=== PATIENT | male | born 1965 | race Caucasian/White ===

== ENCOUNTER 2025-01-24 07:54 | Emergency (ER) | payer BC, SELFPAY ==
[2025-01-24 08:00] VITALS: BP 165/85
[2025-01-24 08:24] VITALS: BMI 33.3
--- NOTE | 2025-01-24 08:24 | ED.GENMED ---
History of Present Illness
General
Chief Complaint: Chest Problem
Source: patient
Time Seen by Provider: 01/24/25 08:12
History of Present Illness
History of Present Illness:
59-year-old male presents to the emergency room for evaluation because he had an episode while flying of feeling severe headache, neck pain, sweaty and had a low pulse ox. Patient states he has a history of necrotizing pancreatitis. He is required
intermittent pancreatic stents in its aftermath. He also has type 1 diabetes and its aftermath. Patient has chronic pain as well. While flying to this area for a the above symptoms began. He initially checked his blood sugar thinking
might be hypoglycemic which he was not his blood sugar was normal. He then used his portable pulse oximeter to check his pulse ox reading. It was reading in the mid 70s. The patient notes he was not feeling particularly short of breath at that
time. However given his complex medical history he was concerned. These events occurred 3 days ago. Since being here in the [facility] he has been feeling at his baseline. He is doing all normal activities. He is scheduled to fly home
tomorrow and has become nervous about his flight home. Currently the patient denies any shortness of breath. He does sometimes have pain when he takes a deep breath in the right lower thorax. This is not severe. This has occurred previously. No
dyspnea with exertion. No chest pain with exertion. No fever or chills or cough.
Phy Exam
Physical Exam
Physical Exam:
General: Awake, Alert, Oriented X3. No acute distress.
Vitals: unremarkable
Head: Atraumatic
Eyes: Pupils equal, EOMI
Throat: Airway intact, no exudates
Neck: Trachea midline
Lungs: Clear and equal b/l
Heart: Regular rate, no murmurs
Abd: Soft, Nontender, No pulsatile mass
Neuro: Nonfocal
Skin: Warm, dry, no rash
Extremities: pulses equal b/l, chronic swelling left lower leg which is unchanged from baseline per patient per patient
Course
Orders/Labs/Results
Orders:
Orders
01/24/25 08:24
Electrocardiogram (*1) Urgent
Reason for Study: Shortness of Breath
EKG- Treatment ONCE
01/24/25 08:37
Basic Metabolic Panel Urgent
Complete Blood Count/With Diff Urgent
D-Dimer Urgent
Troponin I Urgent
01/24/25 09:07
CR Chest - 2 Views Urgent
Comment:
Reason For Exam: sob
Abnormal Lab Results
01/24/25
08:37
WBC 2.9 L 10^3/uL
(4.8-10.8)
Absolute Lymphs (auto) 1.1 L 10^3/uL
(1.2-3.4)
Monocytes % 10.3 H %
(1.7-9.3)
Glucose 123 H mg/dl
(70-99)
01/24/25 08:37
01/24/25 08:37
Vital Signs
Initial and Last Documented VS:
Initial Vital Signs
Temp Pulse Resp BP Pulse Ox
97.8 F 93 16 165/85 96
01/24/25 08:00 01/24/25 08:00 01/24/25 08:00 01/24/25 08:00 01/24/25 08:00
Last Documented Vital Signs
Temp Pulse Resp BP Pulse Ox
97.8 F 72 16 140/87 93
01/24/25 08:00 01/24/25 09:00 01/24/25 09:00 01/24/25 09:00 01/24/25 09:00
MDM/Problems Addressed
Differential Diagnosis Includes:
PE, pleural effusion, anemia
MDM/Problems Addressed:
Labs are unremarkable. D-dimer is normal. He has a normal hemoglobin. Chest x-ray shows an elevated right hemidiaphragm which the patient was aware of. There is no evidence for a serious pathology or reason for hypoxia. Perhaps the persistent
elevation of the right hemidiaphragm affects his oxygenation when he flies. However I am not seeing any objective evidence to suggest it is unsafe for him to fly. No indication for hospitalization.
*Radiology
Radiology exam reviewed: preliminary read by ED provider (No acute abnormalities, elevation of the right hemidiaphragm)
*Pulse Oximetry
SaO2: 96
Oxygen Mode of Delivery: Room air
Patient hypoxic: no
*Critical Care Note
Total Time (30-74mins, 75-104mins- exclusive of procedures): Not Applicable
ED Attending Note
-
Portions of this chart may have been created with voice recognition software.� Occasional wrong word or��sound alike� substitutions may have occurred due to the inherent limitations of voice recognition software.
Discharge Plan
Departure
Patient Disposition: Home (Routine Discharge)
Date of Disposition: 01/24/25
Time of Disposition: 09:46
Patient with high blood pressure during this ER visit?: Yes
Condition: Good
Discharge Problem:
Shortness of breath
Instructions: Shortness of breath in adults - ED (DC), BLOOD PRESSURE
Referrals:
UNKNOWN - PT DOES,NOT KNOW [Family Provider]
Interventions
Interventions:
*Risk Screen - Suicide Last Done: 01/24/25 08:05
*General Assessment Last Done: 01/24/25 08:00
*Neglect/Abuse Screening Last Done: 01/24/25 08:05
*ED- Fall Risk Assessment Last Done: 01/24/25 08:27
*ED COVID-19 Vaccine History Last Done: 01/24/25 08:27
*ED Influenza Vaccine History Last Done: 01/24/25 08:27
*Nursing Disposition Last Done: 01/24/25 09:49
ED- Cardiac Assessment Last Done: 01/24/25 08:43
ED- Pulmonary Assessment Last Done: 01/24/25 08:30
Discharge Date and Time
Discharge Date/Time: 01/24/25 09:50
Print Language: ESTONIAN
[2025-01-24 08:27] VITALS: BP 148/97
[2025-01-24 08:47] LABS: Hematocrit 41.9 % (39.0-52.0); Hemoglobin 14.3 g/dL (13.0-18.0); Mean Corp Hgb Conc. 34.1 g/dL (33.0-37.0); Mean Corpuscular Volume 84.8 fL (80.0-94.0); Nucleated Red Blood Cells % 0 % (-); Platelet Count 163 10^3/uL (130-400); Red Cell Dist. Width 13.2 % (11.5-14.5)
[2025-01-24 08:59] LABS: D-Dimer 0.33 ug/mlFEU (0.00-0.50)
[2025-01-24 09:00] VITALS: BP 140/87
[2025-01-24 09:04] LABS: Blood Urea Nitrogen 16 mg/dl (9-20); Calcium 9.3 mg/dl (8.4-10.2); Carbon Dioxide 28 mmol/L (22-30); Chloride 104 mmol/L (98-107); Estimated Creatinine Clearance 97 ml/min; Glucose 123 mg/dl (70-99); Potassium 4.4 mmol/L (3.5-5.1); Sodium 138 mmol/L (135-145); eGFR > 60.00
[2025-01-24 09:16] LABS: Troponin I 0.017 ng/ml
== END 2025-01-24 09:50 | disposition home or self-care (01) ==
LOC: EMR 07:54
PROVIDERS: EMERGENCY PHYSICIAN Emergency Medicine
DX: R06.02 Shortness of breath (principal); R51.9 Headache, unspecified; M54.2 Cervicalgia; E10.9 Type 1 diabetes mellitus without complications; G89.29 Other chronic pain
CPT/HCPCS: 99285; 71046; 80048; 84484; 85025; 85379; 93005